=== PATIENT | female | born 1975 | race African-American/Black ===

== ENCOUNTER 2018-12-12 11:33 | Emergency (ER) | payer BC, OTHER ==
[~2018-12-12] VITALS: Ht 177.8 cm; Wt 83.9 kg
--- OUTSIDE RECORDS SUMMARY | 2018-12-12 11:35 | XMS REPORT | Clinical Summary ---
Author Author [facility] Organization [facility] Address Unknown Phone Unavailable Care Team Providers Care Mussel Opener Name Role Phone Gayle Stock MD PCP Allergies Comments Active Allergy Reactions Severity Noted Date No Known Drug Allergies 06/12/2016 Medications End Date Status Medication Sig Dispensed Refills Start Date 03/30/2019 Active spironolacton-hydrochloro Take 1 tablet 90 tablet 3 thiaz (ALDACTAZIDE) 25-25 by mouth 8 mg per tablet daily. Active metoprolol succinate XL TAKE 1 TABLET 90 tablet 0 (TOPROL-XL) 50 mg 24 hr BY MOUTH 8 tablet EVERY DAY 07/03/2018 Discontinued medroxyPROGESTERone Inject 1 mL 1 mL 1 (DEPO-PROVERA) 150 mg/mL (150 mg 7 injection total) into the shoulder, thigh, or buttocks every 3 (three) months. 12/19/2017 Discontinued spironolacton-hydrochloro Take 1 tablet 90 tablet 3 thiaz (ALDACTAZIDE) 25-25 by mouth 7 mg per tablet daily. 12/19/2017 Discontinued metoprolol succinate XL metoprolol 90 tablet 0 (TOPROL-XL) 50 mg 24 hr succinate ER 7 tablet 50 mg tablet,extend ed release 24 hr 03/30/2018 Discontinued spironolacton-hydrochloro Take 1 tablet 90 tablet 3 thiaz (ALDACTAZIDE) 25-25 by mouth 8 mg per tablet daily. 12/22/2017 Discontinued metoprolol succinate XL metoprolol 90 tablet 0 (TOPROL-XL) 50 mg 24 hr succinate ER 8 tablet 50 mg tablet,extend ed release 24 hr 03/30/2018 Discontinued metoprolol succinate XL metoprolol 90 tablet 0 01/25/201 (TOPROL-XL) 50 mg 24 hr succinate ER 8 tablet 50 mg tablet,extend ed release 24 hr 09/07/2018 Discontinued metoprolol succinate XL metoprolol 90 tablet 0 (TOPROL-XL) 50 mg 24 hr succinate ER 8 tablet 50 mg tablet,extend ed release 24 hr Active Problems Not on file Encounters Care Team Description Date Type Specialty Galye Stock MD 09/07/2018 Refill Internal Medicine Mary Foley MD Screening breast examination 06/30/2018 Hospital Radiology Encounter Mary Foley MD Screening for cervical cancer (Primary Dx) 06/30/2018 Office Visit Obstetrics and Gynecology Mony Gomez LVN Screening breast examination (Primary Dx) 05/29/2018 Orders Only Obstetrics and Gynecology Mary Foley MD 05/29/2018 Telephone Obstetrics and Gynecology Gayle Stock MD 03/30/2018 Refill Internal Medicine Gayle Stock MD 12/22/2017 Refill Internal Medicine Gayle Stock MD 12/19/2017 Refill Internal Medicine after 12/11/2017 Immunizations Name Dates Previously Given Next Due Influenza Trivalent 08/28/2015 Tdap 03/28/2014 Family History Medical History Relation Name Comments Alcohol abuse Brother Jaden Alcohol abuse Father Luca Diabetes Father Luca Hypertension Father Luca Breast cancer Mother Alesha Cancer Mother Alesha breast cancer Breast cancer Paternal Aunt Breast cancer Paternal Glaydis Grandmother Cancer Paternal Glaydis Grandmother Relation Name Status Comments Brother Jaden Father Luca Alive Mother Alesha Paternal Aunt Paternal Grandmother Glamichelleis Social History Date Tobacco Use Types Packs/Day Years Used Quit: 03/28/2014 Former Smoker Cigarettes 0.25 15 Smokeless Tobacco: Former User Alcohol Use Drinks/Week oz/Week Comments Yes 1 Standard occ drinker drinks or equivalent Sex Assigned at Date Recorded Not on file Industry Job Start Date Occupation Not on file Not on file Not on file Travel End Travel History Travel Start No recent travel history available. Last Filed Vital Signs Time Taken Vital Sign Reading 06/30/2018 11:04 AM CDT Blood Pressure 137/91 06/30/2018 11:04 AM CDT Pulse 78 - Temperature - - Respiratory Rate - - Oxygen Saturation - - Inhaled Oxygen - Concentration 06/30/2018 11:04 AM CDT Weight 129 kg (285 lb) - Height - 06/30/2018 11:04 AM CDT Body Mass Index 40.89 Plan of Treatment Health Maintenance Due Date Last Done Comments INFLUENZA VACCINE 06/28/2018 08/28/2015 CERVICAL CANCER SCREENING 06/30/2021 06/30/2018, 11/27/2015 Procedures Comments Procedure Name Priority Date/Time Associated Diagnosis MAMMO SCREENING W CAD Routine 06/30/2018 Screening breast BILATERAL 1:00 PM CDT examination GYNECOLOGIC PAP TEST Routine 06/30/2018 Screening for cervical (IMAGE-GUIDED), 11:57 AM CDT cancer LIQUID-BASED PREPARATION AND HUMAN PAPILLOMAVIRUS (HPV) HIGH-RISK DNA DETECTION WITH REFLEX TO HPV GENOTYPES 16 AND 18 after 12/11/2017 Results * Mammo Screening w Cad Bilateral (06/30/2018 1:00 PM CDT) Narrative Performed At PROCEDURE: [facility] MAMMO SCREENING W CAD BILATERAL Computer-assisted detection was utilized for the interpretation of this exam. COMPARISON: 2016 TECHNIQUE: Bilateral digital screening mammogram was performed and interpreted using computer-assisted detection. CLINICAL HISTORY: The patient has no current palpable breast complaints. FINDINGS: Bilateral mammogram demonstrates the breast parenchyma to beheterogeneously dense, which could obscure the detection of small masses. LEFT:No specific features of malignancy. RIGHT: No specific features of malignancy. IMPRESSION: BI-RADS Category 2. Benign finding(s). Recommend comparison with physical exam and annual screening mammography. There has been no significant interval change from prior studies. This facility is accredited by [employer] for Mammography. A negative x-ray report should not delay biopsy if a dominant or clinically suspicious mass is present. Not all cancers are identified by x-ray. [id number] Performing Organization Address City/State/Zipcode Phone Number [facility] [phone] [place] [address] * Gynecologic Pap Test (Image-guided), Liquid-based Preparation and Human Papillomavirus (HPV) High-risk DNA Detection With Reflex to HPV Genotypes 16 and 18 (06/30/2018 11:57 AM CDT) Diagnosis CommentComment: NEGATIVE FOR [facility] INTRAEPITHELIAL LESION AND MALIGNANCY. Specimen adequacy Comment [facility] Comment: Satisfactory for evaluation.No endocervical component is identified. The absence of an endocervical component was confirmed by an additional screening evaluation. Clinician provided ICD10 CommentComment: Z12.4 [facility] Performed by: CommentComment: Keyana Blas [facility] Certified Addiction Counselor (ASC) QC reviewed by: Comment [facility] Comment: Yasmin Moon, Certified Addiction Counselor ([facility]) Reviewed at: [facility] [address] [place] [address] [id number] Comment . [facility] Note: Comment [facility] Comment: The Pap smear is a screening test designed to aid in the detection of premalignant and malignant conditions of the uterine cervix.It is not a diagnostic procedure and should not be used as the sole means of detecting cervical cancer.Both false-positive and false-negative reports do occur. Test methodology Comment [facility] Comment: This liquid based ThinPrep(R) pap test was screened with the use of an image guided system. HPV, high-risk Negative Negative [facility] 02 Comment: This high-risk HPV test detects thirteen high-risk types (16/18/31/33/35/39/45/51/52/56 /58/59/68) without differentiation. Specimen Swab Narrative Performed At [facility]formed [facility] - [facility] [address] [place], [id number] [employer] Steel Pourer: Ankita Herrera MD, Phone:[phone] [facility]formed [facility] - [facility] [address] [place], [id number] [employer] Pourer: Ankita Herrera MD, Phone:[phone] Specimen Comment: No. of containers..01 ThinPrep Vial Performing Organization Address City/State/Zipcode Phone Number [facility] 02 after 12/11/2017 Insurance Payer Benefit Subscriber ID Type Phone Address Plan / Group BCBS BCBS xxxxxxxxxxxx PPO CHOICE PPO/CRISTIAN [employer]OHNSON PPO Advance Directives Patient has advance care planning documents on file. For more information, hitesh padron contact: Quinton Brownlee [phone] [facility] [place] [address]
[2018-12-12] MEDS ORDERED: KETOROLAC TROMETHAMINE 60 MG/2 ML VIAL IM ONE (12:15)
[2018-12-12 13:21] VITALS: BP 160/90
== END 2018-12-12 12:35 | disposition home or self-care (01) ==
LOC: FSED 11:33
DX: S20.212A Contusion of left front wall of thorax, initial encounter (principal); V43.52XA Car driver injured in collision with other type car in traffic accident, initial encounter; Y92.410 Unspecified street and highway as the place of occurrence of the external cause; I10 Essential (primary) hypertension
CPT/HCPCS: 96372; 99283; J1885

== ENCOUNTER → 2020-11-26 | Outpatient (CLI) | payer OTHER ==
[~2020-11-26] MED LIST: COVID-19 VACC, MRNA(MODERNA)/PF 100 MCG/0.5 ML VIAL IM ONE
== END ==
LOC: VACCPMC 11-25 01:06 → EDSTATUS 11-27 09:44
DX: Z23 Encounter for immunization (principal); Z20.828 Contact with and (suspected) exposure to other viral communicable diseases

== ENCOUNTER → 2020-12-29 | Outpatient (CLI) | payer OTHER | LOC: VACCPMC 10:42 | DX: Z23 Encounter for immunization (principal); Z20.822 Contact with and (suspected) exposure to COVID-19 ==

== ENCOUNTER → 2021-09-24 | Outpatient (CLI) | payer BC, OTHER | LOC: VACCPMC 09:00 | DX: Z23 Encounter for immunization (principal); Z20.822 Contact with and (suspected) exposure to COVID-19 | CPT/HCPCS: 91301 ==